=== PATIENT | female | born 1965 | race Caucasian/White ===

== ENCOUNTER → 2017-03-06 | Outpatient (CLI) | payer OTHER ==
[~2017-03-06] MED LIST: ACETAMINOPHEN PO; ACTOS; ALBUTEROL 0.5ML INH; ALBUTEROL17 G1 INH; ALBUTEROL17 GM; ALBUTEROL17 GM INH; ANUSOL-HC25 MG/SUPP PR; ASPIRIN PO; ASPIRIN81 M1 PO; ASPIRIN81 M2 PO; ASPIRIN81 MG PO; AZITHROMYCIN250 MG PO; BACTRIM DS TABL1 TA1 PO; BACTRIM DS TABL1 TAB PO; BAYER CHEWABLE81 MG; BENTYL10 MG PO; BENZONATATE PO; CADUET 5 MG/201 TAB; CELEXA PO; CELEXA20 MG; CELEXA20 MG PO; CITALOPRAM HBR10 MG PO; FLEXERIL PO; GLUCOPHAGE500 MG PO; GLUCOTROL PO; GLUCOTROL10 MG; HUMIBID; IBUPROFEN400 MG PO; IBUPROFEN600 MG PO; IMDUR30 MG PO; ISORDIL; ISOSORBIDE DINI30 MG; ISOSORBIDE DINI30 MG PO; KCL PO; KEFLEX500 MG PO; LASIX PO; LEVAQUIN PO; LEVEMIR SUBQ; LISINOPRIL PO; LISINOPRIL10 MG PO; LISINOPRIL5 MG PO; LORATADINE PO; MAGIC MOUTHWASH ENDO; MEDROL PO; MEDROL4 MG/DOSE- PO; METFORMIN HCL1000 M1; METFORMIN HCL1000 M1 PO; METFORMIN PO; METOPROLOL PO; METOPROLOL TAR25 MG PO; METOPROLOL TART25 MG; NAPROSYN500 MG PO; NIASPAN; NITRO-DUR 0.1M0.1 MG SL; NITROGLYGERIN0.4 MG SL; NORVASC PO; OMEPRAZOLE DR PO; OMEPRAZOLE20 M1; PHENERGAN12.5 MG PR; PLAVIX PO; PRAVACHOL PO; PRAVACHOL80 MG PO; PRAVASTATIN SOD40 MG; PRAVASTATIN SOD40 MG PO; PREDNISONE PO; PREDNISONE1 MG PO; PRINIVIL5 MG; ROBAXIN500 MG PO; ROBITUSSIN A-C S5 ML PO; ROBITUSSIN A-C-S1 ML PO; STERAPRED5 MG/DOSE1 PO; SYMBICORT INH; TESSALON PERLE100 M1 DOB; TOPROL XL PO; TUSSIONEX PENN473 ML; TYLENOL #2 PO; TYLENOL #3 PO; TYLENOL500 MG PO; VIBRAMYCIN100 M1 PO; VICODIN 5/1 TAB 5/50 PO; VICODIN PO; ZITHROMAX PO; ZITHROMAX1 G/PKT PO; ZOFRAN ODT4 MG PO
[2017-03-06 13:01] LABS: ALBUMIN SERUM 4.2 g/dL (3.5-5.0); BILIRUBIN, DIRECT 0.1 mg/dL (0.0-0.2); BILIRUBIN,INDIRECT 0.4 mg/dL (0.0-0.9); BILIRUBIN,TOTAL 0.5 mg/dL (0.2-2.0); PROTEIN TOTAL SERUM 7.2 g/dL (6.0-8.3)
== END | disposition home or self-care (01) ==
LOC: CLAB 11:19
PROVIDERS: Podiatrist Foot & Ankle Surgery
DX: Z51.81 Encounter for therapeutic drug level monitoring (principal); Z79.899 Other long term (current) drug therapy
CPT/HCPCS: 36415; 80076